=== PATIENT | female | born 1995 | race Caucasian/White ===

== ENCOUNTER 2018-06-15 19:13 | Emergency (ER) | payer OTHER ==
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
[2018-06-15] MEDS ORDERED: CEPHALEXIN 500MG PREPACK#4 BTL TAKEHOME ONE (19:50)
[2018-06-15 20:24] VITALS: BP 104/75
== END 2018-06-15 20:22 | disposition home or self-care (01) ==
DX: S80.01XA Contusion of right knee, initial encounter (principal); V18.0XXA Pedal cycle driver injured in noncollision transport accident in nontraffic accident, initial encounter; Y93.55 Activity, bike riding